=== PATIENT | female | born 1995 | race Caucasian/White ===

== ENCOUNTER 2022-10-03 08:43 | Emergency (ER) | payer OTHER, BC ==
[~2022-10-03] VITALS: Ht 165.1 cm; Wt 98.0 kg
[2022-10-03] MEDS ORDERED: PROZAC40 MG PO (10:37)
[2022-10-03] MEDS ORDERED: BIRTH CONTROL (10:38)
== END 2022-10-03 12:28 | disposition home or self-care (01) ==
LOC: ER 08:43
DX: S16.1XXA Strain of muscle, fascia and tendon at neck level, initial encounter (principal); S20.212A Contusion of left front wall of thorax, initial encounter; V43.52XA Car driver injured in collision with other type car in traffic accident, initial encounter; Z79.899 Other long term (current) drug therapy
CPT/HCPCS: 71046; 72040; 99284-25

== ENCOUNTER → 2022-11-25 | Outpatient (CLI) | payer BC, OTHER ==
[~2022-11-25] MED LIST: BIRTH CONTROL; PROZAC40 MG PO
[2022-11-25 19:31] LABS: BASOPHILS ABSOLUTE AUTO 0.07 K/mm3 (0.00-0.23); BASOPHILS PERCENT AUTO 1 % (0-2); EOSINOPHILS PERCENT AUTO 4 % (0-6); Hematocrit 38.3 % (33.0-51.0); Hemoglobin 12.8 g/dL (11.5-16.0); IMMATURE GRAN ABSOLUTE AUTO 0.02 K/mm3 (0.00-0.10); IMMATURE GRAN PERCENT AUTO 0 % (0-1); LYMPHOCYTES ABSOLUTE AUTO 2.92 K/mm3 (0.84-5.20); LYMPHOCYTES PERCENT AUTO 27 % (21-46); MONOCYTES ABSOLUTE AUTO 0.71 K/mm3 (0.16-1.47); MONOCYTES PERCENT AUTO 7 % (4-13); Mean Corpuscular HGB 30.3 pg (26.0-34.0); Mean Corpuscular HGB Conc 33.4 g/dL (31.5-36.5); Mean Corpuscular Volume 91 fL (80-100); NEUTROPHILS ABSOLUTE AUTO 6.78 K/mm3 (1.96-9.15); NEUTROPHILS PERCENT AUTO 62 % (41-73); Platelet Count 426 K/mm3 (150-400); RDW Coefficient Variation 13.2 % (11.7-14.2); RDW Standard Deviation 43.7 fL (35.1-46.3); RETICULOCYTE COUNT PERCENT 2.07 % (0.50-2.50); Red Blood Cell Count 4.22 M/mm3 (3.80-5.20)
[2022-11-25 20:37] LABS: Albumin, Blood 3.7 g/dL (3.4-5.0); Albumin/Globulin Ratio 0.8 (0.8-1.8); Bilirubin, Total 0.2 mg/dL (0.1-1.0); Bun/Creatinine Ratio 18.6 (12.0-20.0); Calcium, Blood 9.1 mg/dL (8.5-10.1); Creatinine, Blood 0.86 mg/dL (0.40-1.00); Globulin, Blood 4.6 g/dL (2.2-4.0); Potassium, Blood 4.4 mmol/L (3.5-5.5); Thyroid Stimulating Hormone 1.72 uIU/mL (0.360-4.800); Total Protein, Blood 8.3 g/dL (6.4-8.2)
== END | disposition home or self-care (01) ==
LOC: LAB 18:05 → LAB SHORT 18:05
PROVIDERS: Family Medicine
DX: N92.0 Excessive and frequent menstruation with regular cycle (principal); Z86.2 Personal history of diseases of the blood and blood-forming organs and certain disorders involving the immune mechanism; Z79.899 Other long term (current) drug therapy
CPT/HCPCS: 80053; 84443; 85025; 85045

== ENCOUNTER → 2023-01-10 | Outpatient (CLI) | payer BC, OTHER | END | disposition home or self-care (01) | LOC: LAB 18:42 → LAB SHORT 18:42 | PROVIDERS: Family Medicine | DX: Z01.419 Encounter for gynecological examination (general) (routine) without abnormal findings (principal) | CPT/HCPCS: G0145 ==

== ENCOUNTER 2023-03-26 08:26 | Day surgery (SDC) | payer BC, OTHER ==
[~2023-03-26] VITALS: Ht 162.6 cm; Wt 100.3 kg
[2023-03-26] MEDS ORDERED: ALDACTONE100 MG (09:51)
[2023-03-26] MEDS ORDERED: Bupropion HCl75 MG (09:51)
[2023-03-26 12:09] VITALS: BP 129/77
--- NOTE | 2023-03-26 12:13 | NUR ---
03/26/23 1213 Lamin Espinosa IV REMOVED, CANNULA INTACT. PT CARLYLE WELL, IV SITE WNL
--- NOTE | 2023-03-26 12:26 | NUR ---
03/26/23 1226 Lamin Espinosa PACU ADMISSION ASSESSMENT PERFORMED IN PACU, REPEATED IN SDU IN ERROR.
== END 2023-03-26 12:23 | disposition home or self-care (01) ==
LOC: ORSCSDS 08:26
PROVIDERS: Otolaryngology
PROC: 0CTPXZZ Resection of Tonsils, External Approach (ICD-10-PCS; principal; 2023-03-26 10:15)
DX: J35.01 Chronic tonsillitis (principal); E66.01 Morbid (severe) obesity due to excess calories; Z68.37 Body mass index [BMI] 37.0-37.9, adult
CPT/HCPCS: 84703; 88304; A9270; J1100; J2405; J2704; J3010; J7120

== ENCOUNTER → 2025-02-17 | Outpatient (CLI) | payer OTHER ==
[~2025-02-17] MED LIST changes: +ALDACTONE100 MG; +Bupropion HCl75 MG
[2025-02-17 13:37] LABS: Bacterial Vaginosis PCR Negative (NEGATIVE); Candida Group, PCR NOT DETECTED (NOT DETECT); Candida glabrata-krusei, PCR NOT DETECTED (NOT DETECT)
[2025-02-17 15:59] LABS: Chlamydia Trachomatis Vaginal NOT DETECTED (NOT DETECT); Neisseria Gonorrhoea Vaginal NOT DETECTED (NOT DETECT)
== END ==
LOC: LAB 09:10 → LAB SHORT 09:10
PROVIDERS: Student in an Organized Health Care Education/Training Program
DX: N92.6 Irregular menstruation, unspecified (principal); Z72.53 High risk bisexual behavior
CPT/HCPCS: 81515; 87491; 87591

== ENCOUNTER → 2025-05-20 | Outpatient (CLI) | payer OTHER ==
[2025-05-20 17:25] LABS: Influenza A/2009-H1 Not Detected (NOT DETECT); SARS-Cov-2 (COVID-19), BioFire Not Detected (NOT DETECT)
== END ==
LOC: LAB 13:08 → LAB SHORT 13:08
PROVIDERS: Student in an Organized Health Care Education/Training Program
DX: J06.9 Acute upper respiratory infection, unspecified (principal)
CPT/HCPCS: 0202U